=== PATIENT | male | born 1970 | race African-American/Black ===

== ENCOUNTER 2025-07-13 13:10 | Outpatient (AMB) | payer SELFPAY ==
[2025-07-13 13:23] VITALS: PULSE 58; O2SAT 98; BMI 40.3
--- NOTE | 2025-07-13 13:23 | A.OFFVIS_ITS ---
Vital Signs 07/13/25 13:23 Height 5 ft 10 in Weight 281 lb BMI 40.3 Pulse 58 Pulse Source Pulse Oximeter Pulse Oximetry (%) 98 Oxygen Delivery Method Room Air Intake Visit Reasons: HIV Allergies No Known Allergies Allergy (Verified 07/13/25 13:24) HPI Comments Details: History of Present Illness The patient is a 55 year old male presenting for evaluation following a referral from [facility] regarding a positive HIV test. He underwent routine lab work where an HIV screening test was positive, but subsequent confirmatory antibodies were negative. The patient is asymptomatic and reports no other significant general health issues. Results - Labs: - HIV screening test: Positive. - Confirmatory HIV antibodies: Negative. [facility] Medical History (Updated 07/13/25 @ 13:37 by Samantha Gomez MD) HIV TIM positive Review of Systems Narrative Review of Systems - General: Denies any symptoms. Physical Exam Exam Exam: Physical Exam - Vitals: Stable and afebrile. - Lungs: Clear to auscultation. - Cardiovascular: Regular rate and rhythm. - Abdomen: Soft, non-tender. - Extremities: Non-tender. - Neurological: Examination is nonfocal. - Skin: Clear. Vital Signs: Last Vital Signs Pulse 58 07/13/25 13:23 Pulse Ox 98 07/13/25 13:23 Oxygen Delivery Method Room Air 07/13/25 13:23 BMI result Body Mass Index 40.3 Assessment & Plan Assessment & Plan (1) HIV TIM positive: Code(s): Z21 - Asymptomatic human immunodeficiency virus [HIV] infection status Category: Medical Plan Plan Patient was informed and verbally consented to the use of an ambient scribe for clinic note documentation during this visit. 1. Inconclusive laboratory evidence of human immunodeficiency virus [HIV] R75 The patient presents with discordant HIV testing, including a positive screening test and negative confirmatory antibodies, which could represent a false positive result or a very early infection. The plan is to check an HIV viral load and repeat the HIV test to clarify his status. Follow-up will occur in 3 and 6 months, with further decisions to be made based on the test results. Discussion Notes I discussed with the patient that his test results are inconclusive, as the initial screening was positive but the confirmatory test was negative. I explained that this could be a screening test error or, less likely, a very early infection. We will proceed with further testing, including an HIV viral load and a repeat HIV test, to get a definitive answer. I advised him we will schedule follow-up appointments in 3 and 6 months to review results and determine next steps. Medical Decision Making The patient is a 55-year-old male with discordant HIV serology, specifically a positive screening test with negative confirmatory antibodies. The primary differential includes a false-positive screening test versus acute HIV infection within the seroconversion window. Given that he is asymptomatic and the physical exam is unremarkable, a false positive is more likely. To resolve this, an HIV viral load has been ordered, as it would be detectable in early infection before antibodies develop. A repeat HIV antibody test is also planned, along with follow-up in 3 and 6 months to ensure no delayed seroconversion is missed. Patient Instructions - We will perform additional blood tests to understand your initial HIV test result, including an HIV viral load and a repeat HIV test. - Please schedule a follow-up appointment to see me in 3 months and again in 6 months to review your results and discuss any further steps. Orders: Orders HIV Ab/Ag 07/13/25 Z21 - Asymptomatic human immunodeficiency virus [HIV] infection status HIV-1 RNA QN PCR Expanded 07/13/25 Z21 - Asymptomatic human immunodeficiency virus [HIV] infection status Coding Level of Care Code New Pt Level 3 (85514) Diagnoses HIV TIM positive Z21
== END 2025-07-13 15:26 | disposition home or self-care (01) ==
LOC: HO.HID 13:10
PROVIDERS: Visit Provider Internal Medicine
DX: Z21 Asymptomatic human immunodeficiency virus [HIV] infection status (principal)
CPT/HCPCS: 99203

== ENCOUNTER → 2025-07-13 13:10 | Outpatient (BNVA) | payer SELFPAY | PROVIDERS: Visit Provider Internal Medicine | DX: R75 Inconclusive laboratory evidence of human immunodeficiency virus [HIV] (principal) | CPT/HCPCS: 99202 ==